=== PATIENT | male | born 1990 | race Caucasian/White ===

== ENCOUNTER 2016-10-29 00:21 | Emergency (ER) | payer SELFPAY ==
[~2016-10-29] VITALS: Ht 177.8 cm; Wt 68.0 kg
[2016-10-29 00:30] VITALS: BP 128/78
== END 2016-10-29 01:14 | disposition home or self-care (01) ==
LOC: ER 00:21
DX: S60.561A Insect bite (nonvenomous) of right hand, initial encounter (principal); L08.9 Local infection of the skin and subcutaneous tissue, unspecified; W57.XXXA Bitten or stung by nonvenomous insect and other nonvenomous arthropods, initial encounter; Y93.89 Activity, other specified; Y92.89 Other specified places as the place of occurrence of the external cause; Y99.9 Unspecified external cause status
CPT/HCPCS: 99282; A4606; Z7610